=== PATIENT | male | born 2000 | race Caucasian/White ===

== ENCOUNTER 2024-01-24 16:56 | Emergency (ER) | payer OTHER, SELFPAY ==
[2024-01-24 16:57] VITALS: BP 150/92
--- NOTE | 2024-01-24 17:46 | ED.GENMED ---
History of Present Illness
General
Chief Complaint: Eye Problems
Source: patient
Exam Limitations: none
Time Seen by Provider: 01/24/24 17:19
Nursing documentation reviewed up to this point in time: agreed with
Travel History
Have you had any contact with someone who has COVID-19?: No
Do you have any symptoms of coronavirus? Fever > 100 degrees, chills, cough, shortness of breath, sore throat, loss of taste or smell, muscle aches, or headache?: No
History of Present Illness
History of Present Illness:
Patient to ED for eval of right pupil dilation. Patient states he was placed antibiotic eye drops (tobrex) for pink eye by PCP. States he added antihistamine eye drops on his own. Today noted right pupil was larger that left. Parents requested he
come to ED for eval. Denies headache, dizziness, blurred vision. No other complaints
Past History
Past History
ED Past Medical History: Other (Cerebral palsy)
Review of Systems
Review of Systems
Allergies reviewed?: Yes
All Other Systems: ROS reviewed and negative except as documented in HPI and ROS
Constitutional: Reports no symptoms
EENT: Reports other (right pupil larger thanleft)
Respiratory: Reports no symptoms
Cardiac: Reports no symptoms
ABD/GI: Reports no symptoms
Musculoskeletal: Reports no symptoms
Skin: Reports no symptoms
Neurological: Reports no symptoms
Psychiatric: Reports no symptoms
Phy Exam
General Physical Exam
General Presentation: well appearing and no apparent distress
General age: appears stated age
General Skin: warm and dry
General Habitus: normal
General Mental: alert
General Hydration: appears well hydrated
Eye Exam
Eye Exam: EOMI and globe normal
Eye Exam General: EOM intact: bilateral and dilated pupil, not fixed: right (R4mm, L3mm)
Pupil Exam: Left: dilated and Bilateral: round and reactive
Conjunctival Changes: left: none
NIH Stroke Score
Level of Consciousness: 0 - Alert
LOC questions: 0-Answers both correctly
LOC Commands: 0-Performs both correctly
Best Gaze: 0-Normal
Visual Alba: 0=Normal, no visual loss
Facial palsy: 0=Normal, symmetrical
Motor - Right Arm: 0=No drift 10 seconds
Motor - Left Arm: 0=No drift 10 seconds
Motor - Right Le-No drift 5 seconds
Motor - Left Le-No drift 5 seconds
Limb Ataxia: 0-Absent
Sensation: 0-Normal
Best Language: 0-No aphasia
Dysarthria: 0-Normal
Extinction and Inattention: 0-No abnormality
Total Score:: 0
Mental
Mental Status: oriented to person, oriented to place, oriented to time and usual mental status
Describe Speech: normal speech
Cranial
Cranial Nerves: intact gag reflex and no facial asymetry
EOM (CN3//6): intact
Motor
Seizure Activity: none
Gait: normal
Tremors: none
Other Movement Disorders: none
Right upper extremity: 4
Right lower extremity: 4
Left upper extremity: 4
Left lower extremity: 4
Bilateral upper extremities: 4
Bilateral lower extremities: 4
Sensory
Sensory Exam: intact
Cerebellar
Cerebellar Function: normal finger to nose, normal heel to esparza and normal Romberg test
Musculoskeletal Exam
Musculoskeletal Exam: full ROM and neuro vasc intact
Skin Exam
Skin Exam: normal color, warm/dry and no rash
Psychiatric Exam
Psychiatric Exam: normal mood/affect
Course
Vital Signs
Initial and Last Documented VS:
Initial Vital Signs
Temp Pulse Resp BP Pulse Ox
98.1 F 96 18 150/92 97
01/24/24 16:57 01/24/24 16:57 01/24/24 16:57 01/24/24 16:57 01/24/24 16:57
Last Documented Vital Signs
Temp Pulse Resp BP Pulse Ox
98.1 F 96 18 150/92 97
01/24/24 16:57 01/24/24 16:57 01/24/24 16:57 01/24/24 16:57 01/24/24 16:57
*Critical Care Note
Total Time (30-74mins, 75-104mins- exclusive of procedures): Not Applicable
Update Note
Update Note:
Pupil dilation related to antihistamine eye drops. Recommend stopping antihistamine drops, use artificial tears q1hr WA prn
ED Attending Note
-
Portions of this chart may have been created with voice recognition software.� Occasional wrong word or��sound alike� substitutions may have occurred due to the inherent limitations of voice recognition software.
Discharge Plan
Departure
Patient Disposition: Home (Routine Discharge)
Date of Disposition: 01/24/24
Time of Disposition: 17:41
Patient with high blood pressure during this ER visit?: No
Condition: Good
Covid-19: Not Applicable
Discharge Problem:
Enlargement of one pupil
Instructions: Conjunctivitis (Pinkeye) (DC), How to Use Eye Drops
Prescriptions:
No Action
epinephrine [EpiPen] 0.3 mg/0.3 mL auto-injector
0.3 mg IM .STAT PRN (Reason: anaphylaxis) Qty: 2 0RF
prednisone 50 mg tablet
50 mg PO DAILY Qty: 5 0RF
Referrals:
Chong Redman MD [Family Provider] -
Activity Restrictions/Additional Instructions:
Pupil dilation in one or both eyes is a side effect of the antihistamine eye drops. YOur neurological exam is normal. Follow up with your family doctor.
Interventions
Interventions:
*Risk Screen - Suicide Last Done: 01/24/24 16:57
*General Assessment Last Done: 01/24/24 16:57
*Neglect/Abuse Screening Last Done: 01/24/24 16:57
Discharge Date and Time
Print Language: MACANESE
== END 2024-01-24 18:31 | disposition home or self-care (01) ==
LOC: EMR 16:56
PROVIDERS: EMERGENCY PHYSICIAN Emergency Medicine; FAMILY PHYSICIAN Family Medicine
DX: H57.04 Mydriasis (principal)
CPT/HCPCS: 99283